=== PATIENT | male | born 2005 | race Caucasian/White ===

== ENCOUNTER 2024-01-20 09:37 | Emergency (ER) | payer OTHER ==
[~2024-01-20] VITALS: Ht 175.3 cm; Wt 75.5 kg
[2024-01-20 18:35] VITALS: BP 119/67; TEMP 98.3; O2SAT 99
== END 2024-01-20 18:39 | disposition home or self-care (01) ==
LOC: M ED 09:37
DX: S06.0X1A Concussion with loss of consciousness of 30 minutes or less, initial encounter (principal); Y92.511 Restaurant or cafe as the place of occurrence of the external cause; Y93.9 Activity, unspecified; Y99.9 Unspecified external cause status; F17.290 Nicotine dependence, other tobacco product, uncomplicated